=== PATIENT | male | born 1960 | race Caucasian/White ===

== ENCOUNTER → 2021-04-19 14:40 | Outpatient (BNVA) | payer OTHER, SELFPAY | PROVIDERS: PCP Internal Medicine; Visit Provider Internal Medicine | DX: S92.412A Displaced fracture of proximal phalanx of left great toe, initial encounter for closed fracture (principal); W20.8XXA Other cause of strike by thrown, projected or falling object, initial encounter | CPT/HCPCS: 73660; 99203 ==

== ENCOUNTER 2021-09-23 06:04 | Outpatient (REF) | payer OTHER, SELFPAY ==
[2021-09-23 06:17] LABS: MANUAL DIFF FLAG NO
[2021-09-23 07:27] LABS: Basophils Absolute Auto 0.1 X10*3/uL (0.0-0.2); Eosinophils Absolute Auto 0.2 X10*3/uL (0.0-0.4); Eosinophils Percent Auto 3.6 % (0-4); Hematocrit 44.9 % (42.0-52.0); Hemoglobin 15.4 g/dl (14.0-18.0); Imm Gran Abs Auto 0.01 X10*3/uL (0.00-0.03); Imm Gran Pct Auto 0.2 % (0.0-0.4); Lymphocytes Absolute Auto 1.7 X10*3/uL (1.2-4.9); Lymphocytes Percent Auto 28.1 % (20-40); Mean Corpuscular HGB Conc 34.3 g/dl (31.0-36.0); Mean Corpuscular Hemoglobin 32.3 pg (27.0-33.0); Mean Corpuscular Volume 94.1 fL (80.0-98.0); Mean Platelet Volume 10.6 fL (9.4-12.4); Monocytes Absolute Auto 0.5 X10*3/uL (0.1-1.2); Monocytes Percent Auto 7.8 % (2-11); Neutrophils Absolute Auto 3.5 x10*3/uL (2.0-8.3); Neutrophils Percent Auto 59.3 % (45-73); Platelet Count 218 X10*3/uL (160-400); Red Blood Count 4.77 X10*6/uL (4.60-5.80); Red Cell Distribution Width 12.9 % (11.0-16.0); White Blood Count 5.9 X10*3/uL (4.8-10.8)
[2021-09-23 07:58] LABS: Alanine Aminotransferase 62 U/L (0-40); Albumin Level 4.3 g/dL (3.5-5.0); Alkaline Phosphatase 57 U/L (39-117); Anion Gap 11 (12-20); Aspartate Amino Transferase 35 U/L (5-37); Bilirubin Total 1.1 mg/dL (0.0-1.0); Blood Urea Nitrogen 17 mg/dL (9-16); Calcium 9.6 mg/dL (8.4-10.2); Carbon Dioxide 27 mmol/L (22-29); Chloride 107 mmol/L (96-108); Cholesterol 212 mg/dL; Estimated Glomerular Filt Rate > 60; Glucose Fasting 100 mg/dL (60-99); HDL Cholesterol 33 mg/dL; LDL Cholesterol Calculated 146 mg/dl; Potassium 4.4 mmol/L (3.3-5.1); Sodium 141 mmol/L (135-145); Total Protein 7.2 g/dL (6.5-8.0); Triglycerides 165 mg/dL
[2021-09-23 08:21] LABS: Prostate Specific Antigen Scr 1.62 ng/mL (<0.05-4.0)
== END 2021-09-23 06:05 | disposition home or self-care (01) ==
LOC: HO.LAB 06:04
PROVIDERS: PCP Internal Medicine; Visit Provider Internal Medicine
DX: Z00.00 Encounter for general adult medical examination without abnormal findings (principal); Z12.5 Encounter for screening for malignant neoplasm of prostate
CPT/HCPCS: 36415; 80053; 80061; 84153; 85025

== ENCOUNTER 2023-04-06 08:23 | Outpatient (REF) | payer OTHER, SELFPAY ==
[2023-04-06 08:33] LABS: MANUAL DIFF FLAG NO
[2023-04-06 08:47] LABS: Basophils Absolute Auto 0.1 X10*3/uL (0.0-0.2); Basophils Percent Auto 1.1 % (0-2); Eosinophils Absolute Auto 0.2 X10*3/uL (0.0-0.4); Eosinophils Percent Auto 3.9 % (0-4); Hematocrit 42.8 % (42.0-52.0); Hemoglobin 14.9 g/dl (14.0-18.0); Imm Gran Abs Auto 0.01 X10*3/uL (0.00-0.03); Imm Gran Pct Auto 0.2 % (0.0-0.4); Lymphocytes Absolute Auto 1.6 X10*3/uL (1.2-4.9); Lymphocytes Percent Auto 27.5 % (20-40); Mean Corpuscular HGB Conc 34.8 g/dl (31.0-36.0); Mean Corpuscular Hemoglobin 32.4 pg (27.0-33.0); Mean Platelet Volume 10.2 fL (9.4-12.4); Monocytes Absolute Auto 0.4 X10*3/uL (0.1-1.2); Monocytes Percent Auto 6.7 % (2-11); Neutrophils Absolute Auto 3.5 x10*3/uL (2.0-8.3); Neutrophils Percent Auto 60.6 % (45-73); Platelet Count 199 X10*3/uL (160-400); Red Cell Distribution Width 13.2 % (11.0-16.0); White Blood Count 5.7 X10*3/uL (4.8-10.8)
[2023-04-06 09:35] LABS: Alanine Aminotransferase 52 U/L (0-40); Albumin Level 4.3 g/dL (3.5-5.0); Alkaline Phosphatase 61 U/L (39-117); Anion Gap 11 (12-20); Aspartate Amino Transferase 34 U/L (5-37); Bilirubin Total 0.8 mg/dL (0.0-1.0); Blood Urea Nitrogen 14 mg/dL (9-16); Calcium 9.4 mg/dL (8.4-10.2); Carbon Dioxide 26 mmol/L (22-29); Chloride 110 mmol/L (96-108); Cholesterol 196 mg/dL (<200); Estimated Glomerular Filt Rate > 60; Glucose Fasting 108 mg/dL (60-99); HDL Cholesterol 36 mg/dL (>40); LDL Cholesterol Calculated 130 mg/dL (<100); Potassium 4.6 mmol/L (3.3-5.1); Sodium 142 mmol/L (135-145); Total Protein 6.9 g/dL (6.5-8.0); Triglycerides 151 mg/dL (<150)
[2023-04-06 09:59] LABS: Prostate Specific Antigen 1.53 ng/mL (<0.05-4.0)
[2023-04-08 02:03] LABS: Lyme Abs Screen <0.90 index
== END 2023-04-06 08:24 | disposition home or self-care (01) ==
LOC: HO.LAB 08:23
PROVIDERS: PCP Internal Medicine; Visit Provider Internal Medicine
DX: E78.00 Pure hypercholesterolemia, unspecified (principal); R30.0 Dysuria; Z12.5 Encounter for screening for malignant neoplasm of prostate; T14.8XXA Other injury of unspecified body region, initial encounter; W57.XXXA Bitten or stung by nonvenomous insect and other nonvenomous arthropods, initial encounter; Y93.9 Activity, unspecified; Y92.9 Unspecified place or not applicable; Y99.9 Unspecified external cause status
CPT/HCPCS: 36415; 80053; 80061; 84153; 85025; 86617; 86618

== ENCOUNTER 2025-04-22 07:49 | Outpatient (REF) | payer MEDICARE, SELFPAY ==
--- OUTSIDE RECORDS SUMMARY | 2024-04-24 11:00 | XMS_ITS ---
Author Organization [facility] Address [address] [facility] [place] [address] Care Team Providers Care Skid Adzer Name Role Phone Rony Holden MD Primary Care Provider Unavaila Nadya Hannah [phone] Encounters Encounter Location Date Provider Diagnosis [address] [place] [address] 04/24/2024 Nadya Williamson Plan Of Treatment No Information Progress Notes * ERVIN Sebastián CDOB: [birth year] (64 yo M)Acc No.[id number]:04/24/2024 Progress Note Patient: Sebastián ROBERTS Aravind Provider: Jenny Williamson DPM :1960 A ge:63 Y S ex:Male Date:04/24/2024 [facility] [address] [id number] Pcp:Rony Holden MD Subjective: * Chief Complaints: * * Medical History: Objective: * Vitals: Assessment: Plan: * Treatment: * Images: * The named appointment provid er may or may not be the originator of this progress note, and it is not deemed complete until electronically signed by the appointment provider. Sign off status: Pending * Provider: Jenny Williamson DPM Date: 1 Generated for Erini ng/Faxing/eTransmitting on: 0 04/22/2025 07:58 AM EDT
--- OUTSIDE RECORDS SUMMARY | 2024-06-17 10:00 | XMS_ITS ---
Author Organization [facility] Address [address] [place] [address] Care Team Providers Care Piano Maker Name Role Phone Rony Holden MD Primary Care Provider Unavaila Nadya Hannah [phone] Encounters Encounter Location Date Provider Diagnosis [address] [address] 06/17/2024 Nadya Williamson Plan Of Treatment No Information Progress Notes * MUELLERSebastián RICHARDS CDOB: [birth year] (64 yo M)Acc No.[id number]:06/17/2024 Progress Notes Patient: Sebastián ROBERTS Provider: Jenny Williamson DPM :1960 A ge:63 Y S ex:Male Date:06/17/2024 [facility] [address] [id number] Pcp:Rony Holden MD Subjective: * Chief Complaints: * * Medical History: Objective: * Vitals: Assessment: Plan: * Treatment: * Images: * The named appointment provid er may or may not be the originator of this progress note, and it is not deemed complete until electronically signed by the appointment provider. Sign off status: Pending * Provider: Jenny Williamson DPM Date: 08/17/2023 Generated for Printi ng/Faxing/eTransmitting on: 0 04/22/2025 07:57 AM EDT
--- OUTSIDE RECORDS SUMMARY | 2025-04-22 07:58 | XMS_ITS | Patient Health Record ---
[facility] [place] Address [address] [facility] [place] [address] Care Team Providers Care Recruiter Manager Name Role Phone Rony Holden MD Primary Care Provider Unavaila ble Black, Nadya Unavailable [phone] Allergies No Known Allergies Reason For Referral No Information Medications Medication SIG (Take, Route, Fr equency, Duration) Notes Start Date End Date Status Custom Orthotics as directed 02/26/2024 Active Social History Alcohol Screen Question Answer Notes Did you have a drink containing alcohol in the p ast year? No Points 0 Interpretation Negative Tobacco use other than smoking: Question Answer Notes Are you an other tobacco user? 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) Plantar fasciitis, bilateral (M72.2) Active confirmed Vital Signs Height 5ft 10 in in 05/01/2024 Weight 195 lbs 05/01/2024 BMI 27.98 kg/m2 05/01/2024 Encounters Encounter Location Date [facility] [address] [place] [address] 05/01/2024 Nadya Black Metatarsalgia, right foot M77.41 ; PlantarFlexion of metatarsal of right foot M21.6X1 ; Other hammer toe(s) (acquired), right foot M20.41 ; Keratosis L57.0 ; Pain in right foot M79.671 ; Plantar fasciitis, bilateral M72.2 ; Calcaneal spur, right foot M77.31 ; Other myositis of right foot M60.871 ; Bursitis of right foot M77.51 ; Pain in left foot M79.672 ; Calcaneal spur, left foot M77.32 ; Other myositis of left foot M60.872 and Bursitis of left foot M77.[address] [facility] [address] [address] 04/24/2024 Nadya Williamson [facility] [address] [address] 06/17/2024 Nadya Williamson Assessments Encounter Date Diagnosis (ICD Code) Assessment Notes Treatment Notes Treatment Clinical Notes Section Notes 05/01/2024 Metatarsalgia, right foot (ICD-10 - M77.41) 05/01/2024 PlantarFlexion of metatarsal of right foot (ICD-10 - M21.6X1) 05/01/2024 Other hammer toe(s) (acquired), right foot (ICD-10 - M20.41) 05/01/2024 Keratosis (ICD-10 - L57.0) 05/01/2024 Pain in right foot (ICD-10 - M79.671) 05/01/2024 Plantar fasciitis, bilateral (ICD-10 - M72.2) 05/01/2024 Calcaneal spur, right foot (ICD-10 - M77.31) 05/01/2024 Other myositis of right foot (ICD-10 - M60.871) 05/01/2024 Bursitis of right foot (ICD-10 - M77.51) 05/01/2024 Pain in left foot (ICD-10 - M79.672) 05/01/2024 Calcaneal spur, left foot (ICD-10 - M77.32) 05/01/2024 Other myositis of left foot (ICD-10 - M60.872) 05/01/2024 Bursitis of left foot (ICD-10 - M77.52) Plan Of Treatment No Information Insurance Providers Payer Name Payer Address Payer Phone Subscriber Number Group Number Insured Name Patient Relationship to Insured Coverage Start Date Coverage End Date [facility] [address] [facility] [place] [address] [id number] Kayla Ardon Spouse - patient is the spouse of the insured Medical (General) History Medical History History ICD Code Measles Mumps Chicken pox Surgical History Surgery Date(Month/Year)
[2025-04-22 08:22] LABS: Hematocrit 42.8 % (42.0-52.0); Hemoglobin 15.3 g/dl (14.0-18.0); Mean Corpuscular HGB Conc 35.7 g/dl (31.0-36.0); Mean Corpuscular Hemoglobin 32.9 pg (27.0-33.0); Mean Corpuscular Volume 92.0 fL (80.0-98.0); NRBC Abs Auto 0.000 X10*3/uL (0.0-0.012); NRBC Pct Auto 0.0 /100WBC (0.0-0.2); Platelet Count 204 X10*3/uL (160-400); Red Blood Count 4.65 X10*6/uL (4.60-5.80); White Blood Count 6.0 X10*3/uL (4.8-10.8)
[2025-04-22 08:56] LABS: Alanine Aminotransferase 158 U/L (0-40); Albumin Level 4.7 g/dL (3.5-5.0); Alkaline Phosphatase 59 U/L (39-117); Anion Gap 11 (12-20); Aspartate Amino Transferase 74 U/L (5-37); Blood Urea Nitrogen 14 mg/dL (9-16); Calcium 9.5 mg/dL (8.4-10.2); Carbon Dioxide 25 mmol/L (22-29); Chloride 110 mmol/L (96-108); Cholesterol 209 mg/dL (<200); Estimated Glomerular Filt Rate > 60; HDL Cholesterol 34 mg/dL (>40); Potassium 4.6 mmol/L (3.3-5.1); Sodium 141 mmol/L (135-145); Total Protein 7.3 g/dL (6.5-8.0); Triglycerides 177 mg/dL (<150)
== END 2025-04-22 07:50 | disposition home or self-care (01) ==
LOC: HO.LAB 07:49
PROVIDERS: PCP Physician Assistant Medical; Visit Provider Physician Assistant Medical
DX: Z00.00 Encounter for general adult medical examination without abnormal findings (principal); Z13.220 Encounter for screening for lipoid disorders; Z13.6 Encounter for screening for cardiovascular disorders; Z13.29 Encounter for screening for other suspected endocrine disorder
CPT/HCPCS: 36415; 80053; 80061; 82306; 84443; 85027

== ENCOUNTER 2025-07-11 07:08 | Outpatient (REF) | payer MEDICARE, SELFPAY ==
--- OUTSIDE RECORDS SUMMARY | 2024-04-24 10:00 | XMS_ITS ---
Author Organization [facility] Address [address] [facility] [place] [address] Care Team Providers Care Exchange Architect Name Role Phone Rony Holden MD Primary Care Provider Unavaila Nadya Hannah [phone] Encounters Encounter Location Date Provider Diagnosis [address] [place] [address] 04/24/2024 Nadya Williamson Plan Of Treatment No Information Progress Notes * ERVIN Sebastián CDOB: [birth year] (64 yo M)Acc No.[id number]:04/24/2024 Progress Note Patient: Sebastián ROBERTS Provider: Jenny Williamson DPM :1960 A ge:63 Y S ex:Male Date:04/24/2024 [facility] [address] [id number] Pcp:Rony Holden MD Subjective: * Chief Complaints: * * Medical History: Objective: * Vitals: Assessment: Plan: * Treatment: * Images: * The named appointment provid er may or may not be the originator of this progress note, and it is not deemed complete until electronically signed by the appointment provider. Sign off status: Pending * Provider: Jenny Williamson DPM Date: Generated for Anne Marie lovelace/Fatreva/eTransmitting on: 09/11/2024 07:12 AM EST
--- OUTSIDE RECORDS SUMMARY | 2024-06-17 09:00 | XMS_ITS ---
Author Organization [facility] Address [address] [place] [address] Care Team Providers Care Tank Driver Name Role Phone Rony Holden MD Primary Care Provider Unavaila Nadya Hannah [phone] Encounters Encounter Location Date Provider Diagnosis [address] [address] 06/17/2024 Nadya Williamson Plan Of Treatment No Information Progress Notes * MUELLERSebastián RICHARDS CDOB: [birth year] (64 yo M)Acc No.[id number]:06/17/2024 Progress Notes Patient: Sebastián ROBERTS Provider: Jenny Williamson DPM :1960 A ge:63 Y S ex:Male Date:06/17/2024 Address: [address] [id number] Pcp:Rony Holden MD Subjective: * Chief Complaints: * * Medical History: Objective: * Vitals: Assessment: Plan: * Treatment: * Images: * The named appointment provid er may or may not be the originator of this progress note, and it is not deemed complete until electronically signed by the appointment provider. Sign off status: Pending * Provider: Jenny Williamson DPM Date: 08/17/2023 Generated for Erini ng/Faanna marieg/eTransmitting on: 09/11/2024 07:12 AM EST
--- OUTSIDE RECORDS SUMMARY | 2025-07-11 07:12 | XMS_ITS | Patient Health Record ---
Author Organization 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
[2025-07-11 09:00] LABS: Anion Gap 11 (12-20)
[2025-07-11 09:05] LABS: Alanine Aminotransferase 94 U/L (0-40); Albumin Level 4.7 g/dL (3.5-5.0); Alkaline Phosphatase 60 U/L (39-117); Aspartate Amino Transferase 47 U/L (5-37); Blood Urea Nitrogen 22 mg/dL (9-16); Calcium 9.5 mg/dL (8.4-10.2); Carbon Dioxide 24 mmol/L (22-29); Chloride 108 mmol/L (96-108); Cholesterol 204 mg/dL (<200); Estimated Glomerular Filt Rate 59; HDL Cholesterol 39 mg/dL (>40); Potassium 3.9 mmol/L (3.3-5.1); Sodium 139 mmol/L (135-145); Total Protein 7.5 g/dL (6.5-8.0); Triglycerides 134 mg/dL (<150)
== END 2025-07-11 07:09 | disposition home or self-care (01) ==
LOC: HO.LAB 07:08
PROVIDERS: PCP Physician Assistant Medical; Visit Provider Physician Assistant Medical
DX: R79.89 Other specified abnormal findings of blood chemistry (principal); E78.5 Hyperlipidemia, unspecified; R53.83 Other fatigue; Z13.21 Encounter for screening for nutritional disorder
CPT/HCPCS: 36415; 80053; 80061; 82306; 84443